=== PATIENT | female | born 1975 | race Caucasian/White ===

== ENCOUNTER 2021-12-15 10:10 | Outpatient (CLI) | payer OTHER | END 2021-12-15 11:03 | disposition home or self-care (01) | LOC: NST 10:10 | PROVIDERS: ATTEND Obstetrics & Gynecology Maternal & Fetal Medicine | DX: Z34.83 Encounter for supervision of other normal pregnancy, third trimester (principal) ==

== ENCOUNTER 2022-01-11 05:46 | Inpatient (IN) | payer OTHER ==
[~2022-01-11] VITALS: Ht 157.5 cm; Wt 56.7 kg
[2022-01-11] MEDS ORDERED: PRENATAL TABLE1 EAC3 (06:57)
[2022-01-11] MEDS ORDERED: FOLIC ACID20 MG (06:58)
== END 2022-01-12 15:56 | disposition home or self-care (01) | DRG 807 ==
LOC: LDR 05:46 → OB/GYN 18:02
PROVIDERS: ADMIT Obstetrics & Gynecology Gynecology; ATTEND Obstetrics & Gynecology Gynecology
PROC: 10E0XZZ Delivery of Products of Conception, External Approach (ICD-10-PCS; principal; 2022-01-11)
PROC: 0KQM0ZZ Repair Perineum Muscle, Open Approach (ICD-10-PCS; 2022-01-11)
PROC: 4A1HXCZ Monitoring of Products of Conception, Cardiac Rate, External Approach (ICD-10-PCS; 2022-01-11)
DX: O70.1 Second degree perineal laceration during delivery (principal); Z37.0 Single live birth; Z3A.37 37 weeks gestation of pregnancy; Z20.822 Contact with and (suspected) exposure to COVID-19